=== PATIENT | female | born 1980 | race Caucasian/White ===

== ENCOUNTER 2019-08-02 17:38 | Emergency (ER) | payer SELFPAY ==
[~2019-08-02] VITALS: Ht 165.1 cm; Wt 60.0 kg
[2019-08-02 17:47] VITALS: BP 122/70
[2019-08-02] MEDS ORDERED: HYDROXYZINE 25MG TABLET PO ONE (18:30)
[2019-08-02] MEDS ORDERED: BLOOD SUGAR DIAGNOSTIC STRIP TEST ONE (18:30)
== END 2019-08-02 20:11 | disposition home or self-care (01) ==
LOC: ER 17:38
DX: F41.9 Anxiety disorder, unspecified (principal)
CPT/HCPCS: 82962; 99283